=== PATIENT | male | born 1980 | race Caucasian/White ===

== ENCOUNTER 2020-03-30 12:50 | Emergency (ER) | payer OTHER ==
[~2020-03-30] VITALS: Ht 157.5 cm; Wt 49.9 kg
[2020-03-30 12:58] VITALS: Ht 157.5 cm; Wt 49.9 kg
[2020-03-30 14:27] VITALS: BP 100/59
== END 2020-03-30 14:27 | disposition home or self-care (01) ==
LOC: ED 12:50
DX: S01.81XA Laceration without foreign body of other part of head, initial encounter (principal); F10.129 Alcohol abuse with intoxication, unspecified; Z88.6 Allergy status to analgesic agent; W22.8XXA Striking against or struck by other objects, initial encounter; Y93.89 Activity, other specified; Y92.89 Other specified places as the place of occurrence of the external cause; Y99.8 Other external cause status
CPT/HCPCS: 90715